=== PATIENT | female | born 1970 | race Caucasian/White ===

== ENCOUNTER 2016-11-04 16:29 | Emergency (ER) | payer OTHER ==
[~2016-11-04] VITALS: Ht 170.2 cm; Wt 100.8 kg
[~2016-11-04 16:29] MED LIST: ESCI20TA10 PO
[2016-11-04] MEDS ORDERED: ONDANSETRON 2MG/ML, 2ML ONE (16:49)
[2016-11-04] MEDS ORDERED: MORPHINE SULFATE 4 MG/ML, 1ML ONE (16:49)
[2016-11-04] MEDS ORDERED: SODIUM CHLORIDE FLUSH 10ML SYR IVF ONE (17:00)
[2016-11-04] MEDS ORDERED: MORPHINE SULFATE 4 MG/ML, 1ML IVPush PRN (17:00)
[2016-11-04] MEDS ORDERED: SODIUM CHLORIDE 0.9% 1,000ML IVBOLUS ONE (17:00)
[2016-11-04] MEDS ORDERED: ONDANSETRON 2MG/ML, 2ML IVPush ONE (17:00)
[2016-11-04] MEDS ORDERED: KETOROLAC 30 MG/1 ML ONE (17:13)
[2016-11-04] MEDS ORDERED: KETOROLAC 30 MG/1 ML IVPush ONE (17:30)
[2016-11-04 17:34] LABS: ASPARTATE AMINO TRANSFERASE 15 U/L (15-37); BLOOD UREA NITROGEN 9 mg/dL (7-18)
[2016-11-04 17:44] LABS: ANISOCYTOSIS 2+; MICROCYTOSIS 1+; POLYCHROMASIA 1+
[2016-11-04 19:00] VITALS: BP 116/69
[2016-11-04] MEDS ORDERED: morphine SULFATE 10 MG/ML, 1ML IVPush ONE (19:00)
== END 2016-11-04 19:03 | disposition home or self-care (01) ==
LOC: ED 17:21
DX: N83.02 Follicular cyst of left ovary (principal); N83.01 Follicular cyst of right ovary; R10.2 Pelvic and perineal pain; E03.9 Hypothyroidism, unspecified; Z98.51 Tubal ligation status
CPT/HCPCS: 36415; 76830; 80053; 81003; 84703; 85025; 96361; 96374; 96375; 99285; J1885; J2405; J7030

== ENCOUNTER 2017-05-10 11:20 | Emergency (ER) | payer OTHER ==
[~2017-05-10] VITALS: Ht 157.5 cm; Wt 93.4 kg
[~2017-05-10 11:20] MED LIST changes: +ESTR1PAT79 TP; +HYDR2TAB29 PO; +IBUP200T48 PO; +THYR15TA PO
[2017-05-10] MEDS ORDERED: FAMOTIDINE 20 MG/2 ML ONE (11:48)
[2017-05-10] MEDS ORDERED: ONDANSETRON 2MG/ML, 2ML ONE (11:48)
[2017-05-10] MEDS ORDERED: morphine SULFATE 10 MG/ML, 1ML ONE (11:48)
[2017-05-10 11:53] LABS: HEMATOCRIT 48.5 % (34.6-47.8); HEMOGLOBIN 16.4 g/dL (11.7-16.4); WHITE BLOOD COUNT 9.7 x10^3/uL (3.4-10)
[2017-05-10] MEDS ORDERED: ONDANSETRON 2MG/ML, 2ML IVPush ONE (12:00)
[2017-05-10] MEDS ORDERED: MORPHINE SULFATE 4 MG/ML, 1ML IVPush PRN (12:00)
[2017-05-10] MEDS ORDERED: SODIUM CHLORIDE FLUSH 10ML SYR IVF ONE (12:00)
[2017-05-10] MEDS ORDERED: SODIUM CHLORIDE 0.9% 1,000ML IVBOLUS ONE (12:00)
[2017-05-10] MEDS ORDERED: FAMOTIDINE 20 MG/2 ML IVP ONE (12:00)
[2017-05-10 12:14] LABS: BLOOD UREA NITROGEN 16 mg/dL (7-18)
[2017-05-10 12:17] LABS: ASPARTATE AMINO TRANSFERASE 29 U/L (15-37)
[2017-05-10] MEDS ORDERED: METOCLOPRAMIDE 5 MG/ML, 2ML ONE (14:46)
[2017-05-10] MEDS ORDERED: DICYCLOMINE 10 MG/ML, 2ML ONE (14:47)
[2017-05-10] MEDS ORDERED: METOCLOPRAMIDE 5 MG/ML, 2ML IVPush ONE (15:00)
[2017-05-10] MEDS ORDERED: DICYCLOMINE 10 MG/ML, 2ML IM ONE (15:00)
[2017-05-10 16:03] VITALS: BP 142/68
== END 2017-05-10 16:05 | disposition home or self-care (01) ==
LOC: ED 13:35
DX: N28.9 Disorder of kidney and ureter, unspecified (principal); K52.9 Noninfective gastroenteritis and colitis, unspecified; E03.9 Hypothyroidism, unspecified; Z90.710 Acquired absence of both cervix and uterus
CPT/HCPCS: 36415; 74020; 80053; 81001; 83690; 85025; 87086; 96361; 96372; 96374; 96375; 99285; J0500; J2405; J2765; J7030; S0028

== ENCOUNTER 2018-05-06 17:40 | Emergency (ER) | payer BC ==
[~2018-05-06] VITALS: Ht 157.5 cm; Wt 88.3 kg
[~2018-05-06 17:40] MED LIST changes: -IBUP200T48 PO; +IBUP200T49 PO
[2018-05-06 18:18] LABS: BASOPHILS # (AUTO) 0.03 x10^3/uL (0-0.1); BASOPHILS % (AUTO) 1 % (0-1); EOSINOPHILS # (AUTO) 0.17 x10^3/uL (0-0.4); EOSINOPHILS % (AUTO) 4 % (1-7); LYMPHOCYTES # (AUTO) 1.86 x10^3/uL (1-3.4); LYMPHOCYTES % (AUTO) 38 % (22-44); MD NO; MEAN CORPUSCULAR HEMOGLOBIN 27.1 pg (27.0-34.8); MEAN CORPUSCULAR HGB CONC 33.8 g/dL (32.4-35.8); MEAN CORPUSCULAR VOLUME 80.2 fL (80-100); MEAN PLATELET VOLUME 8.8 fL (7.4-10.4); MONOCYTES # (AUTO) 0.46 x10^3/uL (0.2-0.8); MONOCYTES % (AUTO) 9 % (2-9); NEUTROPHILS # (AUTO) 2.42 x10^3/uL (1.8-6.8); NEUTROPHILS % (AUTO) 49 % (42-75); PLATELET COUNT 295 x10^3/uL (130-400); RED BLOOD COUNT 4.77 x10^6/uL (3.82-5.3); RED CELL DISTRIBUTION WIDTH 16.7 % (9.6-15.2)
[2018-05-06 18:29] LABS: ANION GAP 8 mmol/L (5-15); CALCIUM 8.1 mg/dL (8.5-10.1); CHLORIDE 111 mmol/L (98-107); CREATININE 0.76 mg/dL (0.55-1.02)
[2018-05-06 20:10] VITALS: BP 134/88
== END 2018-05-06 20:13 | disposition home or self-care (01) ==
LOC: ED 19:46
DX: S86.912A Strain of unspecified muscle(s) and tendon(s) at lower leg level, left leg, initial encounter (principal); E03.9 Hypothyroidism, unspecified; W19.XXXA Unspecified fall, initial encounter; Y93.89 Activity, other specified; Y92.009 Unspecified place in unspecified non-institutional (private) residence as the place of occurrence of the external cause; Y99.8 Other external cause status
CPT/HCPCS: 36415; 80048; 85025; 99284